=== PATIENT | male | born 1980 | race Caucasian/White ===

== ENCOUNTER → 2017-01-20 | Day surgery (SDC) | payer OTHER ==
[~2017-01-20] MED LIST: ACETAMINOPHEN500 M7 PO; FLONASE ALLERG9.9 ML
--- NOTE | ~2017-01-20 | OR ---
Unit #: [id number] #: [id number] Patient: ARACELI FLOREZ [id number] [address] [address] [id number] MR#: [id number] NAME: ARACELI FLOREZ ROOM: Date of Procedure: 01/20/2017 Admission Date: 01/20/2017 Surgeon: Kong Kern Jr., M.D. : 1980 Attending Physician: Kong Kern Jr., M.D. Referring Physician: Kong Kern Jr., M.D. OPERATIVE REPORT INDICATIONS FOR PROCEDURE The patient is a 36-year-old white male, recently presented complaining of an enlarging mass of the left flank area. 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 He is brought in this time for excision of this since he is having some pain radiating from the area. PREOPERATIVE DIAGNOSIS Large lipoma of the left flank. POSTOPERATIVE DIAGNOSIS Large lipoma of the left flank. ANESTHESIA 1% Xylocaine with epinephrine locally. PROCEDURE PERFORMED Excision of large lipoma of the left flank. DESCRIPTION OF PROCEDURE The patient was positioned in right lateral decubitus position. After being prepped and draped in routine fashion, he was anesthetized locally in the area of the mass with 1% Xylocaine with epinephrine. A transverse incision was made over the mass approximately 3 to 4 inches in length. This was carried down through the subcutaneous tissue to lipomatous mass, which was approximately 7 cm in diameter and globular. This was dissected free of the surrounding tissue and completely removed with Metzenbaum scissors. After it was removed, it was sent to pathology. Hemostasis was achieved with Bovie cautery and the deeper subcutaneous tissue approximated with interrupted 3-0 Vicryl sutures. Skin edges approximated with stainless-steel skin clips and skin stapling device. Sterile dressings were applied externally. Estimated blood loss minimal, less than 10 mL. The patient received no fluids during the procedure. Sponges and instrument counts were correct x3. No drains used. No complications. The patient was taken to the discharge area with stable vital signs for discharge in satisfactory condition. Dictated by... Kong Kern Jr., M.D. Unit #: [id number] #: [id number] Patient: VIKKIARACELI STEVE/jean marie TD: 01/20/2017 22:26 JOB #: [id number] OPERATIVE REPORT Page 1 of 1 X Kong Kern MD PROCEDURE OPERATIVE NOTE
== END | disposition home or self-care (01) ==
LOC: CSUR 09:52
DX: D17.1 Benign lipomatous neoplasm of skin and subcutaneous tissue of trunk (principal); F17.210 Nicotine dependence, cigarettes, uncomplicated
CPT/HCPCS: 88304